=== PATIENT | female | born 1960 | race Caucasian/White ===

== ENCOUNTER 2021-03-08 15:33 | Outpatient (CLI) | payer BC | END 2021-03-08 15:34 | disposition home or self-care (01) | LOC: BICRAD 15:33 | PROVIDERS: ATTEND Family Medicine | DX: M79.671 Pain in right foot (principal); M19.071 Primary osteoarthritis, right ankle and foot ==

== ENCOUNTER 2021-11-29 10:42 | Outpatient (CLI) | payer BC | END 2021-11-29 10:43 | disposition home or self-care (01) | LOC: BICMAMMO 10:42 | PROVIDERS: ATTEND Family Medicine | DX: Z12.31 Encounter for screening mammogram for malignant neoplasm of breast (principal); N64.89 Other specified disorders of breast | CPT/HCPCS: 77063; 77067 ==

== ENCOUNTER 2022-01-23 08:25 | Outpatient (CLI) | payer BC | END 2022-01-23 08:26 | disposition home or self-care (01) | LOC: BICMAMMO 08:25 | PROVIDERS: ATTEND Family Medicine | DX: R92.8 Other abnormal and inconclusive findings on diagnostic imaging of breast (principal) | CPT/HCPCS: G0279 ==

== ENCOUNTER 2022-06-21 08:56 | Outpatient (CLI) | payer BC | END 2022-06-21 08:57 | disposition home or self-care (01) | LOC: BICRAD 08:56 | PROVIDERS: ATTEND Family Medicine | DX: R05.1 Acute cough (principal) | CPT/HCPCS: 71046 ==

== ENCOUNTER 2023-05-07 08:04 | Outpatient (CLI) | payer BC | END 2023-05-07 08:05 | disposition home or self-care (01) | LOC: BICMAMMO 08:04 | PROVIDERS: ATTEND Family Medicine | DX: Z12.31 Encounter for screening mammogram for malignant neoplasm of breast (principal) | CPT/HCPCS: 77063; 77067 ==